=== PATIENT | male | born 1980 | race Two or more races ===

== ENCOUNTER 2023-05-21 10:38 | Emergency (ER) | payer SELFPAY ==
--- NOTE | ~2023-05-21 | XR_ITS ---
EXAMINATION: XR HAND, LEFT CLINICAL INFORMATION: Middle finger laceration. COMPARISON: None available. TECHNIQUE: PA, lateral, and oblique views of the left hand. FINDINGS: Oblique lucency through the proximal metaphysis of the third middle phalanx with an adjacent soft tissue defect. Findings are consistent with a laceration and incomplete middle phalangeal fracture. Faint densities within the dorsal soft tissues which could represent tiny bone fragments. No radiopaque foreign body. No dislocation. No significant joint space narrowing or marginal osteophytes. No concerning lytic or blastic osseous lesion. Normal carpal alignment. XR/XR hand LT min 3V IMPRESSION: Laceration with an incomplete fracture through the proximal metaphysis of the third middle phalanx. Faint densities within the dorsal soft tissues which could represent tiny bone fragments. No radiopaque foreign body.
[2023-05-21 10:41] VITALS: BP 142/75; PULSE 55; RESP 18; TEMP 37; O2SAT 100; BMI 28.3
[2023-05-21 12:17] VITALS: BP 150/69; PULSE 47; RESP 16; O2SAT 96
[2023-05-21] MEDS: Lidocaine HCl 1 % MPF 5 ML VIAL INFILTRATI (12:48)
[2023-05-21] MEDS: Diphth,Pertus(ACell),Tet Adult 0.5 ML SYRINGE IM (12:48)
--- NOTE | 2023-05-21 13:56 | ED.WOUNDLAC ---
HPI - Wound/Laceration General Chief Complaint: Wound/Laceration Stated Complaint: Finger lac Time Seen by Provider: 05/21/23 11:43 Source: patient and RN notes reviewed Mode of arrival: ambulatory Limitations: no limitations History of Present Illness HPI narrative: This is a 42-year-old Citizen Of [place]-speaking male presenting to the emergency department for evaluation of alteration noted to his left middle finger and ring finger which occurred today. Patient states that while he was at work today is finger got caught in a meat loiner causing him to slice his middle finger and 4th finger. Patient unable to move his digits secondary to pain. He is unsure when his last tetanus was. Denies any other complaints or concerns at this time. Onset (ago): day(s) Place: work Patient tetanus UTD: No Context: accidental Associated symptoms: pain and unable to move injured part Related Data Previous Rx's Medication Instructions Recorded cephalexin 500 mg capsule 500 mg PO QID 5 days #20 caps 05/21/23 Allergies Allergy/AdvReac Type Severity Reaction Status Date / Time No Known Allergies Allergy Verified 05/21/23 10:47 Review of Systems Review of Systems: Yes all other systems are reviewed and are negative [facility] [place] Past Medical History Attestation statement: The following information was validated with the patient. Social History Social History Advance Directives: No Physical Exam Vital Signs: Vital Signs: Last Vital Signs Temp 98.6 F 05/21/23 10:41 Pulse 47 L 05/21/23 12:17 Resp 16 05/21/23 12:17 BP 150/69 H 05/21/23 12:17 Pulse Ox 96 05/21/23 12:17 O2 Del Method Room Air 05/21/23 12:17 BMI result Body Mass Index 28.3 Const: Other: General: Awake, alert, and oriented X3. No acute distress. HEENT: Normal inspection CVS: Normal heart rate and rhythm. Pulses normal. Respiratory: No respiratory distress Skin: Warm, dry, no rashes noted to exposed skin. Normal skin color. Normal skin turgor. Extremities: Left digit posterior aspect overlying the 3rd PIP there is a 2.5 cm laceration, with active bleeding, no foreign body present. Distal sensation circulation intact. No numbness or tingling. Capillary refill less than 2 seconds. Able to flex and extend at DIP, difficulty flexing and extending at PIP secondary to pain. There is also a superficial abrasion to PIP. No active bleeding Neuro: Oriented X 3. No motor deficit. No sensory deficit. Medications Administered Discontinued Medications Generic Name Dose Route Start Last Admin Trade Name Charu PRN Reason Stop Dose Admin Bacitracin 1 appl 05/21/23 13:55 05/21/23 14:25 Bacitracin Oint 0.9 Gm Packet TOPICAL 05/21/23 13:56 1 appl ONCE ONE Administration Protocol Diphtheria/Tetanus/Acell Pertussis 0.5 ml 05/21/23 12:37 05/21/23 12:48 Diphth,Pertus(Acell),Tet Adult 0.5 Ml Syringe IM 05/21/23 12:38 0.5 ml .ONCE ONE Administration Lidocaine HCl 5 ml 05/21/23 12:37 05/21/23 12:48 Lidocaine Hcl 1 % Mpf 5 Ml Vial INFILTRATI 05/21/23 12:38 5 ml ONCE ONE Administration Medical Decision Making Medical Decision Making MDM Narrative: This is a 42-year-old Citizen [place]-speaking male presenting to the emergency department after lacerating his left 3rd finger on a electric meat smoker. On arrival, patient mildly hypertensive at 142/75, all other vital signs within normal limits. Patient has a approximately 2-1/2 cm partial-thickness laceration noted over the 3rd PIP, limited range of motion secondary to pain. Distal sensation circulation intact. Wound closed using 8 4 0 nylon sutures, see procedure note. There has also a fracture through the proximal metaphysis of the 3rd middle phalanx. He also has a superficial abrasion noted over the 4th PIP, no active bleeding, which was closed using skin adhesive. Patient tolerated procedure well without any complications or concerns. Discussed case with orthopedic PA, Andrey Bai, who agrees with this treatment plan. Will follow-up with patient outpatient. Given return precautions. He understands and agrees with plan. Patient stable for discharge Differential Diagnosis Differential Diagnoses: The differential diagnosis associated with the presentation includes Laceration, foreign body, puncture wound, abrasion, fracture Independent Interpretation I performed an independent interpretation of an: Plain X-Ray Interpretation: I reviewed the x-ray and agree with the radiology report Radiology Impression Discussion of test interpretation with radiology: I have reviewed the radiologist's reading. Radiologist Impression: EXAMINATION: XR HAND, LEFT CLINICAL INFORMATION: Middle finger laceration. COMPARISON: None available. TECHNIQUE: PA, lateral, and oblique views of the left hand. FINDINGS: Oblique lucency through the proximal metaphysis of the third middle phalanx with an adjacent soft tissue defect. Findings are consistent with a laceration and incomplete middle phalangeal fracture. Faint densities within the dorsal soft tissues which could represent tiny bone fragments. No radiopaque foreign body. No dislocation. No significant joint space narrowing or marginal osteophytes. No concerning lytic or blastic osseous lesion. Normal carpal alignment. XR/XR hand LT min 3V IMPRESSION: Laceration with an incomplete fracture through the proximal metaphysis of the third middle phalanx. Faint densities within the dorsal soft tissues which could represent tiny bone fragments. No radiopaque foreign body. Dictated By: Davi Ballard MD Procedures Laceration Laceration 1: Site: upper extremity Side (If applicable): left Size (cm): 2.5 Description: linear Depth: simple, single layer Local Anesthetic: lidocaine 1% Amount of anesthesia used (mL): 4 Pre-repair: wound explored, irrigated extensively and deep structures intact Skin layer closed with: nylon Size (cm): 4-0 Number of sutures: 8 Technique: simple, interrupted Orthopedic Splinting/Casting Injury #1: Side: left Upper Extremity Injury Location: finger Upper Extremity Immobilizer: aluminum form splint Discharge Plan Discharge Clinical Impression: Laceration, Fracture of proximal phalanx of finger of left hand, Abrasion of finger, left Patient Disposition: Home, Self-Care Instructions: Care For Your Stitches (ED), Finger Fracture (ED), Skin Adhesive Care (ED) Additional Instructions: You were seen in the emergency department after lacerating your finger on a meat smoker. We updated your tetanus vaccine in the department today. Please keep wound clean and dry. You may apply antibiotic ointment to the laceration as needed. You need to have the sutures removed in 10-14 days. We also applied skin glue to your finger. Please do pick at this the skin glue will fall off on its own. You may wash wound with warm water and soap and pat dry. Your finger also was fractured, please keep your finger in the finger splint until you follow up with orthopedics. Call today to make an appointment. Take prescribed antibiotics as directed. Watch for any signs of infections including increased redness, swelling, drainage, fevers or chills. If any of these occur, please return for re-evaluation. Lo vieron en el departamento de emergencias despu?s de lacerarse el dedo con un cortador de carne. Actualizamos roque vacuna contra el t?tanos en el departamento hoy. Mantenga la herida limpia y seca. Puede aplicar un bridger?ento antibi?rowena a la laceraci?n seg?n sea necesario. Es necesario que le retiren las suturas en 10 a 14 d?as. Tambi?n aplicamos pegamento para la piel en el dedo. Por favor, elija esto, el pegamento para la piel se caer? solo. Puede kirsten la herida con agua tibia y jab?n y secarla con palmaditas. Roque dedo tambi?n se fractur?. Mantenga el dedo en la f?farzana hasta que realice un seguimiento con ortopedia. Llame hoy para programar david parmjit. [place] los antibi?ticos recetados seg?n las indicaciones. Est? atento a cualquier signo de infecci?n, incluido aumento de enrojecimiento, hinchaz?n, secreci?n, fiebre o escalofr?os. Si ocurre cualquiera de estos, regrese para david reevaluaci?n. Prescriptions: New cephalexin 500 mg capsule 500 mg PO QID 5 Days Qty: 20 0RF Referrals: [facility] [Provider Group] Stand Alone Forms: Work/School Release Interventions: ED Discharge Assessment Last Done: 05/21/23 14:30 Discharge Date/Time: 05/21/23 14:32
[2023-05-21] MEDS: Bacitracin Oint 0.9 GM PACKET 1 APPL TOPICAL (14:25)
== END 2023-05-21 14:32 | disposition home or self-care (01) ==
PROVIDERS: Emergency Provider Emergency Medicine
DX: S62.613A Displaced fracture of proximal phalanx of left middle finger, initial encounter for closed fracture (principal); S61.213A Laceration without foreign body of left middle finger without damage to nail, initial encounter; S60.413A Abrasion of left middle finger, initial encounter; W31.82XA Contact with other commercial machinery, initial encounter; Y93.9 Activity, unspecified; Y92.9 Unspecified place or not applicable; Y99.0 Civilian activity done for income or pay; Z23 Encounter for immunization
CPT/HCPCS: 12041; 29130; 73130; 90715; 99283; 99284